=== PATIENT | female | born 1995 | race Hispanic/Latino ===

== ENCOUNTER 2017-07-01 11:13 | Emergency (ER) | payer SELFPAY ==
[2017-07-01] MEDS ORDERED: ONDANSETRON ODT 4 MG TAB ONE (11:33)
[2017-07-01 11:57] LABS: BILIRUBIN,URINE Negative (NEGATIVE); COLOR,URINE Yellow (YELLOW); GLUCOSE, URINE (UA) Negative (NEGATIVE); KETONES,URINE >=160 mg/dL (NEGATIVE); LEUKOCYTE ESTERASE ,URINE Negative (NEGATIVE); NITRATE,URINE Negative (NEGATIVE); OCCULT BLOOD,URINE Moderate (NEGATIVE); PH,URINE 6.5 (5.0-8.0); PROTEIN,URINE 300 (NEGATIVE)
[2017-07-01 11:58] LABS: HCG,QUAL RESULT NEGATIVE (NEGATIVE)
[2017-07-01 12:09] LABS: BASOPHILS % (AUTO) 0.5 % (0.0-5.0); EOSINOPHILS % (AUTO) 0.2 % (0.0-8.0); HEMATOCRIT 40.7 % (36-48); LYMPHOCYTES % (AUTO) 11.1 % (21.0-51.0); MEAN CORPUSCULAR HEMOGLOBIN 27.7 pg (27.0-33.0); MEAN CORPUSCULAR HGB CONC 33.3 g/dL (32.0-36.0); MEAN CORPUSCULAR VOLUME 83.2 fL (79-99); MONOCYTES % (AUTO) 8.5 % (3.0-13.0); NEUTROPHILS % (AUTO) 79.7 % (40.0-77.0); NUCLEATED RED BLOOD CELLS 0.1 % (0.0-0.19); PLATELET COUNT (AUTO) 308 K/uL (130-400); WHITE BLOOD COUNT (AUTO) 11.4 K/uL (4.8-10.8)
[2017-07-01 12:12] LABS: APPEARANCE,URINE SLIGHTLY CLOUDY (CLEAR)
[2017-07-01] MEDS ORDERED: HYOSCYAMINE SULFATE 0.125 MG TAB.SUBL SL ONE (12:16)
[2017-07-01 12:29] LABS: ALBUMIN 4.9 g/dL (3.5-5.0); BILIRUBIN,TOTAL 0.7 mg/dL (0.2-1.0); CREATININE 0.6 mg/dL (0.5-1.5); TOTAL PROTEIN, SERUM 8.7 g/dL (6.0-8.3)
[2017-07-01 12:33] LABS: POTASSIUM 2.9 mmol/L (3.5-5.1)
[2017-07-01] MEDS ORDERED: MAGNESIUM OXIDE 400 MG TABLET PO ONE (12:36)
[2017-07-01] MEDS ORDERED: POTASSIUM BICARB/CIT AC 25 MEQ TABLET.EFF ONE (12:36)
[2017-07-01 12:38] LABS: BACTERIA,URINE Few /HPF (None Seen); MUCUS,URINE Few LPF (None Seen); RBC,URINE 0-1 /HPF (0-1); SQUAMOUS EPITHELIAL CELL,UR Few /LPF (0-2); WBC,URINE 0-1 /HPF (0-1)
== END 2017-07-01 15:06 | disposition home or self-care (01) ==
LOC: EDH 11:13
DX: E87.6 Hypokalemia (principal); R11.2 Nausea with vomiting, unspecified
CPT/HCPCS: 36415; 80053; 81001; 81025; 83690; 84703; 85025

== ENCOUNTER 2018-06-02 11:44 | Emergency (ER) | payer SELFPAY ==
[2018-06-02] MEDS ORDERED: SODIUM CHLORIDE 0.9% 1000ML 1,000 ML IV ONE (12:11)
[2018-06-02] MEDS ORDERED: ONDANSETRON HCL 4 MG/2 ML VIAL ONE (12:11)
[2018-06-02 12:17] LABS: BASOPHILS % (AUTO) 0.8 % (0.0-5.0); EOSINOPHILS % (AUTO) 2.7 % (0.0-8.0); HEMATOCRIT 41.3 % (36-48); MEAN CORPUSCULAR HEMOGLOBIN 28.2 pg (27.0-33.0); MEAN CORPUSCULAR HGB CONC 32.9 g/dL (32.0-36.0); MEAN CORPUSCULAR VOLUME 85.7 fL (80-100); NEUTROPHILS % (AUTO) 64.5 % (40.0-77.0); NUCLEATED RED BLOOD CELLS 0.1 % (0.0-0.19); PLATELET COUNT (AUTO) 237 K/uL (130-400); RED BLOOD CELL COUNT(AUTO) 4.81 MIL/uL (4.00-5.50); RED CELL DISTRIBUTION WIDTH 12.5 % (11.0-15.5); WHITE BLOOD COUNT (AUTO) 7.5 K/uL (4.8-10.8)
[2018-06-02 12:20] LABS: HCG,QUAL RESULT NEGATIVE (NEGATIVE)
[2018-06-02 12:22] LABS: APPEARANCE,URINE CLOUDY (CLEAR); BILIRUBIN,URINE MODERATE (NEGATIVE); GLUCOSE, URINE (UA) NEGATIVE (NEGATIVE); KETONES,URINE 5 mg/dL (NEGATIVE); LEUKOCYTE ESTERASE ,URINE SMALL (NEGATIVE); NITRATE,URINE NEGATIVE (NEGATIVE); OCCULT BLOOD,URINE TRACE-INTACT (NEGATIVE); PROTEIN,URINE 100 (NEGATIVE)
[2018-06-02 12:24] LABS: COLOR,URINE DARK YELLOW (YELLOW)
[2018-06-02 12:41] LABS: ALBUMIN 4.7 g/dL (3.5-5.0); BILIRUBIN,TOTAL 0.7 mg/dL (0.2-1.0); CREATININE 0.7 mg/dL (0.5-1.5); TOTAL PROTEIN, SERUM 8.1 g/dL (6.0-8.3)
[2018-06-02 12:43] LABS: POTASSIUM 2.6 mmol/L (3.5-5.1)
[2018-06-02 13:08] LABS: BACTERIA,URINE Moderate /HPF (None Seen); RBC,URINE 0-1 /HPF (0-1)
[2018-06-02 13:10] LABS: MUCUS,URINE Few LPF (None Seen)
[2018-06-02] MEDS ORDERED: POTASSIUM CHLORIDE 20 MEQ ERTAB PO ONE (13:40)
[2018-06-02] MEDS ORDERED: CEFTRIAXONE SODIUM 1 GM ONE (14:25)
== END 2018-06-02 16:58 | disposition home or self-care (01) ==
LOC: EDH 11:44
DX: N39.0 Urinary tract infection, site not specified (principal); E87.6 Hypokalemia
CPT/HCPCS: 36415; 80053; 81001; 81025; 83735; 84132; 85025; 87077; 87088; 87186; 93005; 96361; 96374; 96375; 99284; J0696; J2405; J7030

== ENCOUNTER 2018-10-09 13:22 | Emergency (ER) | payer SELFPAY ==
[2018-10-09] MEDS ORDERED: METOCLOPRAMIDE 10 MG/2 ML VIAL ONE (13:39)
[2018-10-09 13:50] LABS: BILIRUBIN,URINE NEGATIVE (NEGATIVE); COLOR,URINE YELLOW (YELLOW); GLUCOSE, URINE (UA) NEGATIVE (NEGATIVE); KETONES,URINE 40 mg/dL (NEGATIVE); LEUKOCYTE ESTERASE ,URINE SMALL (NEGATIVE); NITRATE,URINE NEGATIVE (NEGATIVE); OCCULT BLOOD,URINE TRACE-INTACT (NEGATIVE); PROTEIN,URINE 30 mg/dL (NEGATIVE); UROBILINOGEN,URINE 0.2 mg/dL (0.2-1.0)
[2018-10-09 13:57] LABS: HCG,QUAL RESULT NEGATIVE (NEGATIVE)
[2018-10-09 13:58] LABS: BASOPHILS % (AUTO) 0.5 % (0.0-5.0); EOSINOPHILS % (AUTO) 0.6 % (0.0-8.0); HEMATOCRIT 42.5 % (36-48); LYMPHOCYTES % (AUTO) 28.1 % (21.0-51.0); MEAN CORPUSCULAR HEMOGLOBIN 27.9 pg (27.0-33.0); MEAN CORPUSCULAR HGB CONC 33.1 g/dL (32.0-36.0); MEAN CORPUSCULAR VOLUME 84.2 fL (80-100); NEUTROPHILS % (AUTO) 56.8 % (40.0-77.0); PLATELET COUNT (AUTO) 242 K/uL (130-400); RED BLOOD CELL COUNT(AUTO) 5.05 MIL/uL (4.00-5.50); RED CELL DISTRIBUTION WIDTH 12.8 % (11.0-15.5); WHITE BLOOD COUNT (AUTO) 7.6 K/uL (4.8-10.8)
[2018-10-09 13:58] LABS: APPEARANCE,URINE SLIGHTLY CLOUDY (CLEAR); BACTERIA,URINE Moderate /HPF (None Seen); RBC,URINE 0-1 /HPF (0-1); SQUAMOUS EPITHELIAL CELL,UR 30-50 /HPF (0-2)
[2018-10-09 14:13] LABS: BILIRUBIN,TOTAL 0.9 mg/dL (0.2-1.0); CREATININE 0.6 mg/dL (0.5-1.5); TOTAL PROTEIN, SERUM 8.5 g/dL (6.0-8.3)
[2018-10-09] MEDS ORDERED: DICYCLOMINE HCL 20 MG TAB ONE (14:16)
[2018-10-09] MEDS ORDERED: SIMETHICONE 80 MG TAB.CHEW ONE ×2 (14:16→14:17)
[2018-10-09] MEDS ORDERED: POTASSIUM CHLORIDE 20 MEQ ERTAB PO ONE (14:24)
[2018-10-09] MEDS ORDERED: MAGNESIUM OXIDE 400 MG TABLET PO ONE (14:24)
== END 2018-10-09 15:53 | disposition home or self-care (01) ==
LOC: EDH 13:22
DX: E87.6 Hypokalemia (principal); R11.2 Nausea with vomiting, unspecified; R19.7 Diarrhea, unspecified; R10.9 Unspecified abdominal pain
CPT/HCPCS: 36415; 80053; 81001; 81025; 83690; 85025; 96365; 96372; 99284; J2765

== ENCOUNTER 2018-10-11 14:58 | Emergency (ER) | payer SELFPAY ==
[2018-10-11] MEDS ORDERED: ONDANSETRON HCL 4 MG/2 ML VIAL ONE (15:49)
[2018-10-11] MEDS ORDERED: DICYCLOMINE HCL 10 MG/ML 2ML AMP IM ONE (15:49)
[2018-10-11 16:06] LABS: BASOPHILS % (AUTO) 0.4 % (0.0-5.0); EOSINOPHILS % (AUTO) 0.3 % (0.0-8.0); LYMPHOCYTES % (AUTO) 14.9 % (21.0-51.0); MEAN CORPUSCULAR HGB CONC 34.2 g/dL (32.0-36.0); MEAN CORPUSCULAR VOLUME 84.9 fL (80-100); MONOCYTES % (AUTO) 7.4 % (3.0-13.0); PLATELET COUNT (AUTO) 201 K/uL (130-400); RED BLOOD CELL COUNT(AUTO) 4.47 MIL/uL (4.00-5.50); RED CELL DISTRIBUTION WIDTH 12.9 % (11.0-15.5); WHITE BLOOD COUNT (AUTO) 8.4 K/uL (4.8-10.8)
[2018-10-11 16:08] LABS: APPEARANCE,URINE Clear (CLEAR); BILIRUBIN,URINE Small (NEGATIVE); COLOR,URINE Dark Yellow (YELLOW); GLUCOSE, URINE (UA) Negative (NEGATIVE); KETONES,URINE >=160 mg/dL (NEGATIVE); LEUKOCYTE ESTERASE ,URINE Small (NEGATIVE); NITRATE,URINE Negative (NEGATIVE); OCCULT BLOOD,URINE Large (NEGATIVE); PH,URINE 6.5 (5.0-8.0); PROTEIN,URINE POS 1+ mg/dL (NEGATIVE)
[2018-10-11 16:15] LABS: CREATININE 0.5 mg/dL (0.5-1.5); POTASSIUM 3.2 mmol/L (3.5-5.1)
[2018-10-11 16:17] LABS: HCG,QUAL RESULT NEGATIVE (NEGATIVE); RBC,URINE 26-50 /HPF (0-1)
[2018-10-11 16:18] LABS: BACTERIA,URINE Few /HPF (None Seen); MUCUS,URINE Moderate LPF (None Seen); SQUAMOUS EPITHELIAL CELL,UR Few /HPF (0-2)
[2018-10-11 16:20] LABS: ALBUMIN 4.5 g/dL (3.5-5.0); BILIRUBIN,TOTAL 0.8 mg/dL (0.2-1.0); TOTAL PROTEIN, SERUM 7.5 g/dL (6.0-8.3)
[2018-10-11] MEDS ORDERED: POTASSIUM CHLORIDE 20 MEQ ERTAB PO ONE (16:43)
== END 2018-10-11 17:51 | disposition home or self-care (01) ==
LOC: EDH 14:58
DX: E86.0 Dehydration (principal); R11.2 Nausea with vomiting, unspecified; R19.7 Diarrhea, unspecified
CPT/HCPCS: 36415; 80053; 81001; 81025; 83690; 85025; 96365; 96372; 99284; J0500; J2405

== ENCOUNTER 2018-11-07 11:37 | Emergency (ER) | payer SELFPAY ==
[~2018-11-07] VITALS: Ht 154.9 cm; Wt 63.5 kg
[2018-11-07] MEDS ORDERED: ONDANSETRON HCL 4 MG/2 ML VIAL ONE (12:03)
[2018-11-07 12:29] LABS: BASOPHILS % (AUTO) 0.6 % (0.0-5.0); EOSINOPHILS % (AUTO) 0.4 % (0.0-8.0); HEMATOCRIT 42.1 % (36-48); LYMPHOCYTES % (AUTO) 21.9 % (21.0-51.0); MEAN CORPUSCULAR HEMOGLOBIN 29.2 pg (27.0-33.0); MEAN CORPUSCULAR VOLUME 85.8 fL (80-100); MONOCYTES % (AUTO) 7.4 % (3.0-13.0); NEUTROPHILS % (AUTO) 69.7 % (40.0-77.0); PLATELET COUNT (AUTO) 249 K/uL (130-400); RED BLOOD CELL COUNT(AUTO) 4.91 MIL/uL (4.00-5.50); RED CELL DISTRIBUTION WIDTH 13.4 % (11.0-15.5); WHITE BLOOD COUNT (AUTO) 7.7 K/uL (4.8-10.8)
[2018-11-07 12:44] LABS: CREATININE 0.6 mg/dL (0.5-1.5); TOTAL PROTEIN, SERUM 8.2 g/dL (6.0-8.3)
[2018-11-07 12:50] LABS: POTASSIUM 2.9 mmol/L (3.5-5.1)
[2018-11-07] MEDS ORDERED: MAGNESIUM OXIDE 400 MG TABLET PO ONE (12:56)
[2018-11-07] MEDS ORDERED: POTASSIUM CHLORIDE 20 MEQ ERTAB PO ONE (12:57)
[2018-11-07 13:23] LABS: APPEARANCE,URINE Clear (CLEAR); BILIRUBIN,URINE Negative (NEGATIVE); COLOR,URINE Yellow (YELLOW); GLUCOSE, URINE (UA) Negative (NEGATIVE); KETONES,URINE >=80 mg/dL (NEGATIVE); LEUKOCYTE ESTERASE ,URINE Negative (NEGATIVE); NITRATE,URINE Negative (NEGATIVE); OCCULT BLOOD,URINE Large (NEGATIVE); PROTEIN,URINE Negative (NEGATIVE); UROBILINOGEN,URINE 0.2 mg/dL (0.2-1.0)
[2018-11-07 13:29] LABS: AMPHET/METH SCREEN,URINE NEGATIVE (NEGATIVE); BARBITURATE SCREEN, URINE NEGATIVE (NEGATIVE); BENZODIAZEPINES SCREEN,URINE NEGATIVE (NEGATIVE); CANNABINOID SCREEN,URINE POSITIVE (NEGATIVE); COCAINE SCREEN,URINE NEGATIVE (NEGATIVE); HCG,QUAL RESULT NEGATIVE (NEGATIVE); OPIATE SCREEN,URINE NEGATIVE (NEGATIVE); PHENCYCLIDINE SCREEN,URINE NEGATIVE (NEGATIVE)
[2018-11-07 13:39] LABS: BACTERIA,URINE Rare /HPF (None Seen); MUCUS,URINE Rare LPF (None Seen); SQUAMOUS EPITHELIAL CELL,UR Rare /HPF (0-2); WBC,URINE 0-1 /HPF (0-1)
== END 2018-11-07 13:45 | disposition home or self-care (01) ==
LOC: EDH 11:37
DX: E87.6 Hypokalemia (principal); F12.10 Cannabis abuse, uncomplicated; R10.84 Generalized abdominal pain; R11.2 Nausea with vomiting, unspecified
CPT/HCPCS: 36415; 80053; 80305; 81001; 81025; 83690; 85025; 96361; 96374; 99284; J2405

== ENCOUNTER 2019-01-25 12:36 | Emergency (ER) | payer SELFPAY ==
[2019-01-25] MEDS ORDERED: METOCLOPRAMIDE 10 MG/2 ML VIAL ONE ×2 (13:27→13:44)
[2019-01-25 13:30] LABS: BASOPHILS % (AUTO) 0.4 % (0.0-5.0); HEMATOCRIT 38.9 % (36-48); LYMPHOCYTES % (AUTO) 7.9 % (21.0-51.0); MEAN CORPUSCULAR HEMOGLOBIN 29.5 pg (27.0-33.0); MEAN CORPUSCULAR HGB CONC 33.7 g/dL (32.0-36.0); MEAN CORPUSCULAR VOLUME 87.6 fL (80-100); MONOCYTES % (AUTO) 2.5 % (3.0-13.0); NEUTROPHILS % (AUTO) 89.2 % (40.0-77.0); PLATELET COUNT (AUTO) 235 K/uL (130-400); RED BLOOD CELL COUNT(AUTO) 4.44 MIL/uL (4.00-5.50); RED CELL DISTRIBUTION WIDTH 12.3 % (11.0-15.5); WHITE BLOOD COUNT (AUTO) 9.5 K/uL (4.8-10.8)
[2019-01-25 13:30] LABS: BILIRUBIN,URINE NEGATIVE (NEGATIVE); COLOR,URINE YELLOW (YELLOW); GLUCOSE, URINE (UA) NEGATIVE (NEGATIVE); KETONES,URINE >=80 mg/dL (NEGATIVE); LEUKOCYTE ESTERASE ,URINE NEGATIVE (NEGATIVE); NITRATE,URINE NEGATIVE (NEGATIVE); OCCULT BLOOD,URINE NEGATIVE (NEGATIVE); PROTEIN,URINE 30 mg/dL (NEGATIVE); UROBILINOGEN,URINE 0.2 mg/dL (0.2-1.0)
[2019-01-25 13:34] LABS: APPEARANCE,URINE CLOUDY (CLEAR); HCG,QUAL RESULT POSITIVE (NEGATIVE)
[2019-01-25 13:37] LABS: BACTERIA,URINE Few /HPF (None Seen); MUCUS,URINE Moderate LPF (None Seen)
[2019-01-25 13:44] LABS: AMPHET/METH SCREEN,URINE NEGATIVE (NEGATIVE); BARBITURATE SCREEN, URINE NEGATIVE (NEGATIVE); BENZODIAZEPINES SCREEN,URINE NEGATIVE (NEGATIVE); CANNABINOID SCREEN,URINE POSITIVE (NEGATIVE); COCAINE SCREEN,URINE NEGATIVE (NEGATIVE); OPIATE SCREEN,URINE NEGATIVE (NEGATIVE); PHENCYCLIDINE SCREEN,URINE NEGATIVE (NEGATIVE)
[2019-01-25 13:46] LABS: CREATININE 0.5 mg/dL (0.5-1.5); POTASSIUM 3.9 mmol/L (3.5-5.1)
[2019-01-25 13:50] LABS: ALBUMIN 4.8 g/dL (3.5-5.0); BILIRUBIN,TOTAL 0.7 mg/dL (0.2-1.0)
[2019-01-25] MEDS ORDERED: ONDANSETRON HCL 4 MG/2 ML VIAL ONE (14:13)
== END 2019-01-25 16:13 | disposition home or self-care (01) ==
LOC: EDH 12:36
DX: O99.321 Drug use complicating pregnancy, first trimester (principal); F12.10 Cannabis abuse, uncomplicated; R10.84 Generalized abdominal pain; Z3A.01 Less than 8 weeks gestation of pregnancy
CPT/HCPCS: 36415; 76801; 80053; 80305; 81001; 81025; 83690; 84702; 85025; 96374; 96375; 99285; J2405; J2765 ×2

== ENCOUNTER 2019-01-27 21:10 | Emergency (ER) | payer OTHER ==
[2019-01-27] MEDS ORDERED: METOCLOPRAMIDE 10 MG/2 ML VIAL ONE (21:41)
[2019-01-27] MEDS ORDERED: SODIUM CHLORIDE 0.9% 1000ML 1,000 ML IV ONE (21:41)
[2019-01-27 21:43] LABS: APPEARANCE,URINE Cloudy (CLEAR); BASOPHILS % (AUTO) 0.3 % (0.0-5.0); BILIRUBIN,URINE Negative (NEGATIVE); COLOR,URINE Yellow (YELLOW); EOSINOPHILS % (AUTO) 0.3 % (0.0-8.0); GLUCOSE, URINE (UA) Negative (NEGATIVE); HEMATOCRIT 44.2 % (36-48); KETONES,URINE 40 mg/dL (NEGATIVE); LEUKOCYTE ESTERASE ,URINE Trace (NEGATIVE); LYMPHOCYTES % (AUTO) 16.7 % (21.0-51.0); MEAN CORPUSCULAR HEMOGLOBIN 29.3 pg (27.0-33.0); MEAN CORPUSCULAR HGB CONC 34.2 g/dL (32.0-36.0); MEAN CORPUSCULAR VOLUME 85.6 fL (80-100); MONOCYTES % (AUTO) 12.2 % (3.0-13.0); NEUTROPHILS % (AUTO) 70.5 % (40.0-77.0); NITRATE,URINE Negative (NEGATIVE); OCCULT BLOOD,URINE Negative (NEGATIVE); PH,URINE 6.5 (5.0-8.0); PLATELET COUNT (AUTO) 274 K/uL (130-400); PROTEIN,URINE POS 1+ mg/dL (NEGATIVE); RED BLOOD CELL COUNT(AUTO) 5.16 MIL/uL (4.00-5.50); RED CELL DISTRIBUTION WIDTH 12.3 % (11.0-15.5); WHITE BLOOD COUNT (AUTO) 14.4 K/uL (4.8-10.8)
[2019-01-27 21:53] LABS: BACTERIA,URINE Few /HPF (None Seen); CREATININE 0.6 mg/dL (0.5-1.5); POTASSIUM 3.1 mmol/L (3.5-5.1); RBC,URINE 0-1 /HPF (0-1); SQUAMOUS EPITHELIAL CELL,UR Moderate /HPF (0-2)
[2019-01-27 21:54] LABS: MUCUS,URINE Few LPF (None Seen)
[2019-01-27 21:57] LABS: BILIRUBIN,TOTAL 1.3 mg/dL (0.2-1.0); TOTAL PROTEIN, SERUM 8.7 g/dL (6.0-8.3)
[2019-01-27] MEDS ORDERED: POTASSIUM CHLORIDE 20 MEQ ERTAB PO ONE ×2 (22:39→23:11)
[2019-01-27] MEDS ORDERED: MAGNESIUM OXIDE 400 MG TABLET PO ONE ×2 (22:39→23:11)
[2019-01-27] MEDS ORDERED: ONDANSETRON HCL 4 MG/2 ML VIAL ONE (22:51)
== END 2019-01-27 23:59 | disposition home or self-care (01) ==
LOC: EDH 21:10
DX: O21.0 Mild hyperemesis gravidarum (principal); O26.891 Other specified pregnancy related conditions, first trimester; E87.6 Hypokalemia; Z3A.01 Less than 8 weeks gestation of pregnancy
CPT/HCPCS: 36415; 80053; 81001; 83690; 85025; 96361; 96374; 96375; 99284; J2405; J2765; J7030

== ENCOUNTER 2021-12-09 12:49 | Emergency (ER) | payer MEDICAID ==
[~2021-12-09] VITALS: Ht 154.9 cm; Wt 68.0 kg
[2021-12-09] MEDS ORDERED: PROMETHAZINE HCL 25 MG/ML 1ML AMPULE IM ONE (13:00)
[2021-12-09] MEDS ORDERED: 0.9%NACL 1000ML 1,000 ML IV SCH (13:00)
[2021-12-09 13:24] LABS: BASOPHILS % (AUTO) 0.3 % (0.0-5.0); EOSINOPHILS % (AUTO) 0.2 % (0.0-8.0); HEMATOCRIT 41.7 % (36-48); MEAN CORPUSCULAR HEMOGLOBIN 28.1 pg (27.0-33.0); MEAN CORPUSCULAR HGB CONC 33.3 g/dL (32.0-36.0); MEAN CORPUSCULAR VOLUME 84.4 fL (79-99); MONOCYTES % (AUTO) 10.5 % (3.0-13.0); NEUTROPHILS % (AUTO) 69.6 % (40.0-77.0); PLATELET COUNT (AUTO) 312 K/uL (130-400); RED BLOOD CELL COUNT(AUTO) 4.94 MIL/uL (4.00-5.50); RED CELL DISTRIBUTION WIDTH 12.2 % (11.0-15.5); WHITE BLOOD COUNT (AUTO) 11.6 K/uL (4.8-10.8)
[2021-12-09 13:38] LABS: ALBUMIN 4.8 g/dL (3.5-5.0); BILIRUBIN,TOTAL 0.9 mg/dL (0.2-1.0); CREATININE 0.6 mg/dL (0.5-1.5); TOTAL PROTEIN, SERUM 8.1 g/dL (6.0-8.3)
[2021-12-09 13:43] LABS: POTASSIUM 2.8 mmol/L (3.5-5.1)
[2021-12-09] MEDS ORDERED: LACTATED RINGERS 1000ML 1,000 ML IV SCH (14:00)
[2021-12-09] MEDS ORDERED: POTASSIUM BICARB/CIT AC 25 MEQ TABLET.EFF PO ONE (14:00)
[2021-12-09 15:30] LABS: APPEARANCE,URINE Cloudy (CLEAR); BILIRUBIN,URINE Negative (NEGATIVE); COLOR,URINE Yellow (YELLOW); GLUCOSE, URINE (UA) Negative (NEGATIVE); KETONES,URINE 15 mg/dL (NEGATIVE); LEUKOCYTE ESTERASE ,URINE Trace (NEGATIVE); NITRATE,URINE Positive (NEGATIVE); OCCULT BLOOD,URINE Trace (NEGATIVE); PROTEIN,URINE Negative (NEGATIVE)
[2021-12-09 15:41] LABS: BACTERIA,URINE Many /HPF (None Seen)
[2021-12-09 15:42] LABS: MUCUS,URINE Few LPF (None Seen); SQUAMOUS EPITHELIAL CELL,UR Few /HPF (0-2)
[2021-12-09] MEDS ORDERED: CEFTRIAXONE 1G VIAL IVP ONE (16:00)
[2021-12-09] MEDS ORDERED: ONDA4TAB10 PO (16:09)
[2021-12-09] MEDS ORDERED: POTA-187 PO (16:09)
[2021-12-09] MEDS ORDERED: CEPH500B PO (16:09)
[2021-12-09] MEDS ORDERED: ONDANSETRON 4MG INJ ONE (16:24)
[2021-12-09] MEDS ORDERED: ONDANSETRON 4MG INJ IVP ONE (16:30)
[2021-12-09 16:58] VITALS: BP 124/65
== END 2021-12-09 16:59 | disposition home or self-care (01) ==
LOC: EDH 12:49
DX: A08.4 Viral intestinal infection, unspecified (principal); E86.0 Dehydration; E87.6 Hypokalemia
CPT/HCPCS: 36415; 80053; 81001; 81025; 82550; 83690; 85025; 87077; 87088; 87186; 96361; 96372; 96374; 96375; 99284; J0696; J2405; J2550; J7030; J7120

== ENCOUNTER 2022-03-10 12:47 | Emergency (ER) | payer MEDICAID ==
[~2022-03-10] VITALS: Ht 154.9 cm; Wt 68.0 kg
[~2022-03-10 12:47] MED LIST: CEPH500B PO; ONDA4TAB10 PO; POTA-187 PO
[2022-03-10] MEDS ORDERED: ONDANSETRON 4MG INJ IVP ONE ×2 (13:00→14:30)
[2022-03-10] MEDS ORDERED: 0.9%NACL 1000ML 1,000 ML IV SCH (13:00)
[2022-03-10 13:25] LABS: BASOPHILS % (AUTO) 0.3 % (0.0-5.0); HEMATOCRIT 43.2 % (36-48); LYMPHOCYTES % (AUTO) 13.3 % (21.0-51.0); MEAN CORPUSCULAR HEMOGLOBIN 28.6 pg (27.0-33.0); MONOCYTES % (AUTO) 6.9 % (3.0-13.0); NEUTROPHILS % (AUTO) 79.1 % (40.0-77.0); PLATELET COUNT (AUTO) 302 K/uL (130-400); RED BLOOD CELL COUNT(AUTO) 5.14 MIL/uL (4.00-5.50); RED CELL DISTRIBUTION WIDTH 11.9 % (11.0-15.5); WHITE BLOOD COUNT (AUTO) 12.5 K/uL (4.8-10.8)
[2022-03-10 13:54] LABS: ALBUMIN 4.8 g/dL (3.5-5.0); CREATININE 0.5 mg/dL (0.5-1.5)
[2022-03-10 14:08] LABS: POTASSIUM 2.7 mmol/L (3.5-5.1)
[2022-03-10 14:08] LABS: APPEARANCE,URINE CLOUDY (CLEAR); BILIRUBIN,URINE SMALL (NEGATIVE); COLOR,URINE ORANGE (YELLOW); GLUCOSE, URINE (UA) NEGATIVE (NEGATIVE); KETONES,URINE >=80 mg/dL (NEGATIVE); LEUKOCYTE ESTERASE ,URINE TRACE (NEGATIVE); NITRATE,URINE NEGATIVE (NEGATIVE); OCCULT BLOOD,URINE LARGE (NEGATIVE); PH,URINE 6.5 (5.0-8.0); PROTEIN,URINE 100 mg/dL (NEGATIVE)
[2022-03-10 14:14] LABS: HCG,QUALITATIVE URINE NEGATIVE (NEGATIVE)
[2022-03-10 14:23] LABS: BACTERIA,URINE Rare /HPF (None Seen); MUCUS,URINE Rare LPF (None Seen); RBC,URINE >100 /HPF (0-1); SQUAMOUS EPITHELIAL CELL,UR Few /HPF (0-2)
[2022-03-10] MEDS ORDERED: POTASSIUM BICARB/CIT AC 25 MEQ TABLET.EFF PO ONE (14:30)
[2022-03-10] MEDS ORDERED: IOHEXOL 350 MG/ML 100ML INFUS..BTL IV ONE (14:34)
[2022-03-10] MEDS ORDERED: CEPH500B PO (16:55)
[2022-03-10] MEDS ORDERED: CEFTRIAXONE 1G VIAL IVP ONE (17:00)
[2022-03-10] MEDS ORDERED: KCL 20 MEQ ERTAB PO SCH (17:00)
[2022-03-10] MEDS ORDERED: POTASSIUM CHLORIDE 10MEQ/100ML 100 ML IV ONE (17:05)
[2022-03-10] MEDS ORDERED: POTASSIUM CHLORIDE 10MEQ/100ML 10 MEQ/100 ML ML IV SCH (17:30)
[2022-03-10 18:54] VITALS: BP 119/78
== END 2022-03-10 18:55 | disposition home or self-care (01) ==
LOC: EDH 12:47
DX: N39.0 Urinary tract infection, site not specified (principal); E87.6 Hypokalemia; E86.0 Dehydration; Z20.822 Contact with and (suspected) exposure to COVID-19
CPT/HCPCS: 99285; 74177; 96365; 96375; 87426; 80053; 85025; 87040 ×2; 87088; 87880; 87804 ×2; 83605; 81001; 81025; 36415; 96376; J7030 ×2; J0696; J2405 ×2; Q9967

== ENCOUNTER 2022-05-27 13:32 | Emergency (ER) | payer MEDICAID ==
[~2022-05-27] VITALS: Ht 154.9 cm; Wt 74.8 kg
[2022-05-27 14:15] LABS: BASOPHILS % (AUTO) 0.3 % (0.0-5.0); EOSINOPHILS % (AUTO) 0.1 % (0.0-8.0); HEMATOCRIT 43.1 % (36-48); LYMPHOCYTES % (AUTO) 20.2 % (21.0-51.0); MEAN CORPUSCULAR HEMOGLOBIN 28.2 pg (27.0-33.0); MEAN CORPUSCULAR HGB CONC 33.4 g/dL (32.0-36.0); MEAN CORPUSCULAR VOLUME 84.5 fL (79-99); MONOCYTES % (AUTO) 10.1 % (3.0-13.0); NEUTROPHILS % (AUTO) 68.9 % (40.0-77.0); PLATELET COUNT (AUTO) 306 K/uL (130-400); RED CELL DISTRIBUTION WIDTH 12.6 % (11.0-15.5); WHITE BLOOD COUNT (AUTO) 14.5 K/uL (4.8-10.8)
[2022-05-27 14:18] LABS: APPEARANCE,URINE TURBID (CLEAR); BILIRUBIN,URINE 1 mg/dL (NEGATIVE); COLOR,URINE DARK-YELLOW (YELLOW); GLUCOSE, URINE (UA) 70 mg/dL (NEGATIVE); KETONES,URINE 150 mg/dL (NEGATIVE); LEUKOCYTE ESTERASE ,URINE 500 Leu/uL (NEGATIVE); NITRATE,URINE 1+ (NEGATIVE); OCCULT BLOOD,URINE NEGATIVE (NEGATIVE); PROTEIN,URINE 300 mg/dL (NEGATIVE)
[2022-05-27 14:25] LABS: BACTERIA,URINE FEW /HPF (None Seen); MUCUS,URINE MOD LPF (None Seen); SQUAMOUS EPITHELIAL CELL,UR MOD /HPF (0-2); WBC,URINE 51-100 /HPF (0-1); YEAST,URINE BUDDING RARE /HPF (None Seen)
[2022-05-27 14:25] LABS: ALBUMIN 5.2 g/dL (3.5-5.0); CREATININE 0.8 mg/dL (0.5-1.5)
[2022-05-27 14:31] LABS: POTASSIUM 2.9 mmol/L (3.5-5.1)
[2022-05-27 14:33] LABS: TOTAL PROTEIN, SERUM 9.1 g/dL (6.0-8.3)
[2022-05-27] MEDS ORDERED: CEPH500B PO (16:01)
[2022-05-27] MEDS ORDERED: ONDA4TAB10 PO (16:01)
[2022-05-27] MEDS ORDERED: NAPR500T6 PO (16:01)
[2022-05-27] MEDS ORDERED: PHEN-846 PO (16:01)
[2022-05-27] MEDS: 0.9%NACL 1000ML 1,000 ML IV ONE (16:11)
[2022-05-27] MEDS: KETOROLAC 15MG/ML VIAL (15MG/ML) IV ONE (16:11)
[2022-05-27] MEDS: FAMOTIDINE 20MG VIAL IV ONE (16:11)
[2022-05-27] MEDS: ONDANSETRON 4MG INJ IVP ONE (16:11)
[2022-05-27] MEDS: CEFTRIAXONE 1G VIAL IVP ONE (16:11)
[2022-05-27] MEDS: POTASSIUM BICARB/CIT AC 25 MEQ TABLET.EFF PO ONE (17:00)
[2022-05-27 17:10] VITALS: BP 139/84
== END 2022-05-27 17:37 | disposition home or self-care (01) ==
LOC: EDH 13:32
DX: N39.0 Urinary tract infection, site not specified (principal); Z20.822 Contact with and (suspected) exposure to COVID-19; Z79.899 Other long term (current) drug therapy
CPT/HCPCS: 99284; 96374; 96375; 87635; 80053; 83690; 85025; 87088; 87804 ×2; 81001; 81025; 36415; C9803; J0696; J2405; J1885; S0028; J3490